=== PATIENT | female | born 1965 | race Caucasian/White ===

== ENCOUNTER 2018-10-24 12:48 | Day surgery (SDC) | payer BC ==
[2018-10-24] MEDS ORDERED: MIDAZOLAM 1 MG/ML 2 ML INJ ×3 (14:30→14:31)
[2018-10-24] MEDS ORDERED: FENTAnyl 50 MCG/ML VIAL (14:30)
== END 2018-10-24 17:22 | disposition home or self-care (01) ==
LOC: GIL 12:48
DX: Z12.11 Encounter for screening for malignant neoplasm of colon (principal); K64.8 Other hemorrhoids
CPT/HCPCS: 45378